=== PATIENT | female | born 2000 | race Asian ===

== ENCOUNTER 2023-10-27 14:10 | Emergency (ER) | payer OTHER, SELFPAY ==
[2023-10-27 14:13] VITALS: BP 124/60; PULSE 73; RESP 16; TEMP 36.3; O2SAT 98; BMI 22.5
--- NOTE | 2023-10-27 14:23 | ED_ITS ---
HPI - Head Injury General Time Seen by Provider: 14:23 Date Seen: 10/27/23 Chief complaint: Head Injury/Pain Stated complaint: Hit head on barbell yes-concussion? Time Seen by Provider: 10/27/23 14:13 Source: patient and RN notes reviewed Mode of arrival: ambulatory Limitations: no limitations History of Present Illness HPI Narrative: This 23-year-old female is a student at [employer] coming in with concern of concussion symptoms. She was lifting weights yesterday, went back to help a friend find her water bottle, bent down to get the water bottle and when she ca me up she hit her head on a barbell knocking it off of the stand. She did not lose consciousness, has no neck or back pain. She notes that she did get a headache, the area on the top of her right head is sore. She does not think there is any open wound, it did not bleed. She has felt dizzy, feels foggy, is being bothered by looking at screens. Screen time increases her symptoms. She did note last night she watched a movie with a couple of friends, really did not realize it but feels like the movie may have increased her symptoms. She denies any visual changes or double vision to me. Has been ambulating and using her extremities fine. She will occasionally get headaches, usually around her menstrual cycle. Her menstrual cycle is not due until next week. She does not have any history of concussions. She has a peanut allergy, has a EpiPen but otherwise denies any chronic medical issues or prior surgeries. MD Complaint: head injury and head pain Related Data Allergies Allergy/AdvReac Type Severity Reaction Status Date / Time peanut Allergy Verified 09/08/23 15:36 tree nut Allergy Verified 09/08/23 15:36 Review of Systems Status of ROS: Reports: 6 or more systems reviewed and unremarkable except as noted in History and below [facility] Medical History (Updated 10/27/23 @ 15:57 by Neelima Molina MD) Peanut allergy ?Z91.010 - Allergy to peanuts (ICD-10) Social History Smoking Status: Never smoker How often do you have a drink containing alcohol: never AUDIT-C Alcohol total score: 0 Non-prescribed substance use: denies use service: No Exam Const: Vital Signs, click to edit/add: Vital Signs - 24 hr 10/27/23 14:13 Temperature 97.4 F L Pulse Rate [Pulse Oximeter] 73 Respiratory Rate 16 Blood Pressure [Le ft Upper Arm] 124/60 Pulse Oximetry 98 Oxygen Delivery Me thod Room Air This 23-year-old female is ambulatory into the ED of her own accord, she is alert, interactive, no apparent distress. Face is atraumatic. Pupils are equal round and reactive, conjugate gaze, sclera clear. No drainage from nares. TMs canals normal, no hemotympanum, no fluid in canals. She has a tender area over the right parietal scalp, I do not feel any significant raised area of tissue here, there is certainly no traumatic change on inspection of the scalp. No midline tenderness over neck, neck is supple, no adenopathy. Lungs are clear bases. CV regular rate and rhythm no murmur. She has 5/5 symmetrical upper and lower extremities strength. She can tandem walk, can stand and balance on each leg. She has normal sensation on examination. Documenting provider has reviewed patient's vital signs: yes Course Course ED Course: Reviewed [place] head injury rules, recommendations for observation versus head CT. Her father is a urologist in [place], we did call him on the phone and all of us discussed her situation and symptoms. She certainly has symptoms suggestive of a mild concussion. She has not had any CT imaging before. I did leave her and her father to talk on the phone, they can ultimately make the decision if they would like to proceed with CT imaging. Reevaluation(s) Time of Reevaluation #1: 15:02 Reevaluation #1: Did discuss with patient and her dad, they have made the decision on proceeding with head CT imaging. Time of Reevaluation #2: 15:55 Reevaluation #2: Reviewed normal head CT. Will discharge to home as planned. Vital Signs Vital signs: Initial Vital Signs Temperature 97.4 F L 10/27/23 14:13 Temperature Source Temporal Artery Scan 10/27/23 14:13 Pulse Rate 73 10/27/23 14:13 Respiratory Rate 16 10/27/23 14:13 Blood Pressure 124/60 10/27/23 14:13 Blood Pressure Mean 81 10/27/23 14:13 Blood Pressure Position Sitting 10/27/23 14:13 Pulse Oximetry 98 10/27/23 14:13 Oxygen Delivery Method Room Air 10/27/23 14:13 Vital Signs Temperature 97.4 F L 10/27/23 14:13 Pulse Rate 73 10/27/23 14:13 Respiratory Rate 16 10/27/23 14:13 Blood Pressure 124/60 10/27/23 14:13 Pulse Oximetry 98 10/27/23 14:13 Oxygen Delivery Method Room Air 10/27/23 14:13 Temperature 97.4 F L 10/27/23 14:13 Pulse Rate 73 10/27/23 14:13 Respiratory Rate 16 10/27/23 14:13 Blood Pressure 124/60 10/27/23 14:13 Pulse Oximetry 98 10/27/23 14:13 Oxygen Delivery Method Room Air 10/27/23 14:13 MDM - Head Injury Imaging Data CT scan - head: Attestation: I have reviewed the pertinent imaging results. Radiologist's impression: Patient: CRISTELA LOTT Facility:?[facility] Patient ID:?[id number] Site Patient ID:?[id number]. Site :?2001 Study:?CT Head WITHOUT-10/27/2023 3:34:26 PM Ordering Physician:CHERELLE Final Report: INDICATION: Head trauma, concussion. TECHNIQUE: CT head without contrast. COMPARISON: None. FINDINGS: CSF spaces: Within normal limits for age. Brain parenchyma: The mathew-white differentiation is normal. No sign of mass, hemorrhage, or midline shift. Skull base and calvarium: The visualized paranasal sinuses and mastoid air cells demonstrate no acute or significant findings. The visualized orbits are grossly unremarkable. No skull fractures. IMPRESSION: Unremarkable noncontrast head CT. Please note that all CT scans at this facility use dose modulation, iterative reconstruction, and/or weight-based dosing when appropriate to reduce radiation dose to as low as reasonably achievable. Dictated by Haseeb Villa MD @ 10/27/2023 3:44:54 PM (Electronic Signature) Discharge Plan Discharge Clinical Impression: Concussion without loss of consciousness Patient Disposition: Home, Self-Care Condition: Stable Instructions: Concussion (ED), Cognitive Disorders after Traumatic Brain Injury (ED) Additional Instructions: Can use Tylenol and ibuprofen per bottle directions as needed for headache control. Do recommend adequate rest, it is important to get adequate sleep right now. You need to stay well hydrated. Avoid any strenuous activity or exercise until your symptoms are improving. If you have ongoing concussion symptoms beyond a week, do recommend that you are seen in re-evaluation and consideration for referral to a concussion or traumatic brain injury program discussed. If your concussion symptoms are improving through the week, can try to return to routine activity over the next week. Activity Level: No strenuous activity Follow Up/Referrals: Provider,Not a Local [Primary Care Provider] - Stand Alone Forms: [employer] Info Instructions
--- NOTE | 2023-10-27 15:01 | CT_ITS ---
Patient: CRISTELA LOTT Facility:?[facility] Patient ID:?[id number] Site Patient ID:?[id number]. Site :?2001 Study:?CT-Head WITHOUT-10/27/2023 3:34:26 PM Ordering Physician:CHERELLE Final Report: INDICATION: Head trauma, concussion. TECHNIQUE: CT head without contrast. COMPARISON: None. FINDINGS: CSF spaces: Within normal limits for age. Brain parenchyma: The mathew-white differentiation is normal. No sign of mass, hemorrhage, or midline shift. Skull base and calvarium: The visualized paranasal sinuses and mastoid air cells demonstrate no acute or significant findings. The visualized orbits are grossly unremarkable. No skull fractures. IMPRESSION: Unremarkable noncontrast head CT. Please note that all CT scans at this facility use dose modulation, iterative reconstruction, and/or weight-based dosing when appropriate to reduce radiation dose to as low as reasonably achievable. Dictated by Haseeb Villa MD @ 10/27/2023 3:44:54 PM Signed by:?Haseeb Villa MD @10/27/2023 3:44:54 PM (Electronic Signature)
== END 2023-10-27 16:12 | disposition home or self-care (01) ==
PROVIDERS: Emergency Provider Family Medicine
DX: S06.0X0A Concussion without loss of consciousness, initial encounter (principal)
CPT/HCPCS: 70450; 96361; 96374; 96375; 99283; 99284